=== PATIENT | female | born 1990 | race Caucasian/White ===

== ENCOUNTER 2017-05-22 20:26 | Observation (INO) | payer MEDICAID ==
[~2017-05-22] VITALS: Ht 157.5 cm; Wt 68.0 kg
[2017-05-22] MEDS ORDERED: ACETAMINOPHEN 500MG TABLET PO NR (21:30)
[2017-05-22] MEDS ORDERED: ONDANSETRON HCL 4MG/2ML INJ IM NR (21:30)
[2017-05-22] MEDS ORDERED: MAGNESIUM/ALUMINUM HYDROXIDE/SIMETHICONE 30ML UDC PO NR (21:30)
[2017-05-22] MEDS ORDERED: SODIUM CHLORIDE 0.9% 1,000 ML IV SCH (21:30)
[2017-05-22] MEDS ORDERED: PNV1TABL76 MT (23:29)
== END 2017-05-22 23:45 | disposition home or self-care (01) ==
LOC: L&D 20:26
PROVIDERS: ADMIT Specialist; ATTEND Specialist
DX: O26.893 Other specified pregnancy related conditions, third trimester (principal); R10.30 Lower abdominal pain, unspecified; M54.6 Pain in thoracic spine; Z3A.36 36 weeks gestation of pregnancy; R06.02 Shortness of breath; R11.0 Nausea
CPT/HCPCS: 96360; 96361; 96372; 99281; G0378; J2405; J7030; J7120

== ENCOUNTER 2024-06-15 17:19 | Emergency (ER) | payer MEDICAID, OTHER ==
[~2024-06-15] VITALS: Ht 154.9 cm; Wt 65.9 kg
[~2024-06-15 17:19] MED LIST: PNV1TABL76 MT
[2024-06-15 18:06] LABS: BASOPHILS % 1.2 % (0.0-2.0); EOSINOPHILS % 1.5 % (0.0-5.0); HEMATOCRIT. 41.8 % (36.0-48.0); HEMOGLOBIN. 13.8 g/dL (12.0-16.0); LYMPHOCYTES % 32.7 % (20.0-50.0); MEAN CORPUSCULAR HEMOGLOBIN 26.6 pg (28.0-32.0); MEAN CORPUSCULAR HGB CONC 33.1 g/dL (31.0-37.0); MEAN CORPUSCULAR VOLUME 80.2 fL (81.0-99.0); MEAN PLATELET VOLUME 8.1 fl (7.4-10.4); MONOCYTES % 5.9 % (2.0-8.0); NEUTROPHILS % 58.7 % (40.0-76.0); PLATELET 493 x1000/uL (130-400); RED BLOOD CELL COUNT 5.21 mill/uL (4.2-5.4); RED CELL DISTRIBUTION WIDTH 14.9 % (11.6-14.6); WHITE BLOOD COUNT 9.5 x1000/uL (4.5-11.0)
[2024-06-15 18:14] LABS: CHLORIDE 104 mEq/L (98-107); POTASSIUM 3.4 mEq/L (3.5-5.1); SODIUM 141 mEq/L (136-145)
[2024-06-15 18:15] LABS: CALCIUM 10.6 mg/dL (8.7-10.4); CARBON DIOXIDE 23 mEq/L (21-32)
[2024-06-15 18:20] LABS: CREATININE 0.8 mg/dL (0.6-1.0); GLUCOSE 91 mg/dL (70-105); HCG SCREEN NEGATIVE; UREA NITROGEN BLOOD 11 mg/dL (9-23)
[2024-06-15 19:05] LABS: TROPONIN I HIGH SENSITIVITY < 4 ng/L (3.0-34)
[2024-06-15 20:24] LABS: *AMPHETAMINES SCREEN URINE NEGATIVE (NEGATIVE); *BARBITURATES SCREEN URINE NEGATIVE (NEGATIVE); *BENZODIAZEPINES SCREEN URINE NEGATIVE (NEGATIVE); *COCAINE SCREEN URINE NEGATIVE (NEGATIVE); CANNABINOID URINE SCREEN NEGATIVE (NEGATIVE); ECSTASY MDMA SCREEN URINE NEGATIVE (NEGATIVE); METHADONE URINE SCREEN NEGATIVE (NEGATIVE); OPIATES URINE SCREEN NEGATIVE (NEGATIVE); PHENCYCLIDINE URINE SCREEN NEGATIVE (NEGATIVE)
[2024-06-15] MEDS ORDERED: ONDANSETRON 4MG ODT PO ONE (20:45)
[2024-06-15] MEDS ORDERED: ONDA4TAB50 MT (20:48)
[2024-06-15] MEDS ORDERED: IBUP-2029 MT (20:48)
== END 2024-06-15 21:08 | disposition home or self-care (01) ==
LOC: ER 17:19
DX: R07.89 Other chest pain (principal); Z79.899 Other long term (current) drug therapy
CPT/HCPCS: 36415; 71045; 71275; 80048; 80305; 84443; 84484; 84703; 85025; 85379; 93005; 99285

== ENCOUNTER 2025-04-13 13:37 | Emergency (ER) | payer OTHER ==
[~2025-04-13] VITALS: Ht 160 cm; Wt 66.0 kg
[~2025-04-13 13:37] MED LIST changes: +IBUP-1455 MT; +ONDA4TAB50 MT
[2025-04-13 13:45] VITALS: O2SAT 98
[2025-04-13 14:09] LABS: BASOPHILS % 0.8 % (0.0-2.0); EOSINOPHILS % 1.5 % (0.0-5.0); HEMATOCRIT. 40.4 % (36.0-48.0); HEMOGLOBIN. 13.3 g/dL (12.0-16.0); LYMPHOCYTES % 29.1 % (20.0-50.0); MEAN PLATELET VOLUME 8.0 fl (7.4-10.4); MONOCYTES % 5.0 % (2.0-8.0); NEUTROPHILS % 63.6 % (40.0-76.0); PLATELET 361 x1000/uL (130-400); RED BLOOD CELL COUNT 5.14 mill/uL (4.2-5.4); RED CELL DISTRIBUTION WIDTH 14.4 % (11.6-14.6)
[2025-04-13 14:25] LABS: CREATININE 0.6 mg/dL (0.6-1.0); UREA NITROGEN BLOOD 7 mg/dL (9-23)
[2025-04-13 14:26] LABS: PROTEIN TOTAL 7.6 g/dL (6.0-8.3)
[2025-04-13 14:27] LABS: ASPARTATE AMINOTRANSFERASE 21 IU/L (<34); BILIRUBIN DIRECT 0.1 mg/dL (<=3.0); BILIRUBIN TOTAL 0.6 mg/dL (0.1-1.0)
[2025-04-13 14:34] LABS: CLARITY URINE CLEAR (CLEAR); COLOR URINE YELLOW (YELLOW); GLUCOSE URINE NEGATIVE (NEGATIVE); KETONES URINE NEGATIVE (NEGATIVE); LEUKOCYTE ESTERASE URINE NEGATIVE (NEGATIVE); NITRITE URINE NEGATIVE (NEGATIVE); OCCULT BLOOD URINE NEGATIVE (NEGATIVE); PH URINE 7.0 (4.5-8.0); PROTEIN URINE NEGATIVE (NEGATIVE); SPECIFIC GRAVITY URINE 1.005 (1.005-1.030); UROBILINOGEN URINE 0.2 E.U./dL (0.2-1.0)
[2025-04-13] MEDS: MAGNESIUM/ALUMINUM HYDROXIDE/SIMETHICONE 30ML UDC PO ONE (14:52)
[2025-04-13] MEDS: FAMOTIDINE 20MG TABLET PO NR (14:52)
[2025-04-13] MEDS: ONDANSETRON 4MG ODT PO NR (14:52)
[2025-04-13] MEDS: HYDROCODONE/ACETAMINOPHEN 7.5/325MG TABLET PO NR (14:52)
[2025-04-13 14:53] LABS: HCG SCREEN NEGATIVE
[2025-04-13] MEDS: KETOROLAC 30MG/ML VIAL IM ONE (16:27)
[2025-04-13 16:40] VITALS: BP 109/72; PULSE 77; RESP 18; TEMP 36.5; O2SAT 98
== END 2025-04-13 16:43 | disposition home or self-care (01) ==
LOC: ER 13:37
DX: R10.11 Right upper quadrant pain (principal); R07.89 Other chest pain
CPT/HCPCS: 80076; 80048; 81003; 81025; 84703; 83690; 85025; 36415; 76705; 96372; 99285; Q0162; J1885; Z7610

== ENCOUNTER 2025-04-15 15:42 | Emergency (ER) | payer OTHER ==
[~2025-04-15] VITALS: Ht 157.5 cm; Wt 65.0 kg
[2025-04-15 15:55] VITALS: O2SAT 99
[2025-04-15 18:51] LABS: BASOPHILS % 0.8 % (0.0-2.0); EOSINOPHILS % 1.7 % (0.0-5.0); HEMATOCRIT. 38.8 % (36.0-48.0); HEMOGLOBIN. 12.8 g/dL (12.0-16.0); LYMPHOCYTES % 30.3 % (20.0-50.0); MEAN PLATELET VOLUME 7.8 fl (7.4-10.4); MONOCYTES % 6.6 % (2.0-8.0); NEUTROPHILS % 60.6 % (40.0-76.0); PLATELET 330 x1000/uL (130-400); RED BLOOD CELL COUNT 4.92 mill/uL (4.2-5.4); RED CELL DISTRIBUTION WIDTH 14.0 % (11.6-14.6)
[2025-04-15 19:05] LABS: CREATININE 0.7 mg/dL (0.6-1.0); UREA NITROGEN BLOOD 8 mg/dL (9-23)
[2025-04-15 20:05] VITALS: BP 103/67; PULSE 87; RESP 17; TEMP 36.9; O2SAT 98
== END 2025-04-15 20:08 | disposition home or self-care (01) ==
LOC: ER 15:42
DX: M79.604 Pain in right leg (principal); M79.605 Pain in left leg; R20.0 Anesthesia of skin; R20.2 Paresthesia of skin
CPT/HCPCS: 36415; 80048; 85025; 93970; 99284